=== PATIENT | male | born 1965 | race Caucasian/White ===

== ENCOUNTER 2025-01-17 08:48 | Outpatient (REF) | payer BC, SELFPAY ==
--- NOTE | ~2025-01-17 | XR_ITS ---
EXAMINATION: X-ray lumbar spine. CLINICAL INFORMATION: Radiculopathy, lumbar region. TECHNIQUE: AP and lateral views. Lateral views during flexion and extension position. COMPARISON: None FINDINGS: Multilevel endplate sclerosis and marginal osteophyte formation. Grade 1 retrolisthesis L1-2. Grade 1 anterolisthesis L4-5. No gross worsening of the anterolisthesis during flexion and/or extension.. No gross worsening of the retrolisthesis during flexion and or extension. No acute cortical disruption. No lytic or blastic lesions. XR/XR lumbar spine 4V min IMPRESSION: Multilevel spondylosis resulting in grade 1 anterolisthesis L4-5 and grade 1 retrolisthesis L1-2 without instability. Electronically signed by: Miki Hernandez MD 01/17/2025 11:13 AM EDT
== END 2025-01-17 08:49 | disposition home or self-care (01) ==
LOC: HO.HOSX 08:48
PROVIDERS: PCP Family Medicine; Referring Provider Family Medicine; Visit Provider Physician Assistant
DX: M54.16 Radiculopathy, lumbar region (principal)
CPT/HCPCS: 72110

== ENCOUNTER 2025-01-17 08:48 | Outpatient (AMB) | payer BC, SELFPAY ==
--- OUTSIDE RECORDS SUMMARY | 2025-01-17 09:03 | XMS_ITS | Encounter Summary ---
Author Organization [facility] Address [address] [place] [address] Care Team Providers Care Edge Stainer Machine Name Role Phone Yrn Sanchez MD Primary Care Provider [phone] Encounter Details Date Type Department Care Team (Late st Contact Info) Description 10/11/2017 Molecule Softwarehart Message [address] [address] Paulina Ventura CCMA change in appointment Social History Tobacco Use Types Packs/Day Years Used Date Smoking Tobacco: Never Smokeless Tobacco: Never Comments:: Alcohol Use Standard Drinks/Week Comments Yes 2 (1 standard drink = 0.6 oz pur e alcohol) Sex and Gender Information Value Date Recorded Sex Assigned at Not on file Legal Sex Male 2:42 AM EDT Gender Identity Not on file Sexual Orientation Not on file documented as of this encounter Plan of Treatment Not on file documented as of this encounter Visit Diagnoses Not on filedocumented in this encounter Additional Health Concerns Infection Onset Date Last Indicated Resolved Time COVID-19 - Suspected infection 06/10/2021 06/10/2021 06/14/2021 11:29 PM EST documented as of this encounter Care Teams Edge Stainer Machine Relationship Specialty Start Date End Date Yrn Sanchez MD [address] [place] [phone] PCP - General Internal Medicine 02/02/22 documented as of this encounter
--- NOTE | 2025-01-17 09:39 | HO.SPINEOV ---
Vital Signs 01/17/25 09:46 Height 5 ft 10 in Weight 190 lb BMI 27.3 Intake Visit Reasons: lumbar stenosis Intake Note: Mr. Decker is here today c/o low back pain that radiates to the left leg down to the foot. Disabilities Services Officer Required: No Allergies No Known Allergies Allergy (Verified 01/17/25 09:47) Physical Exam Vital Signs: BMI result Body Mass Index 27.3 Assessment & Plan Assessment & Plan (1) Lumbar radiculopathy: Code(s): M54.16 - Radiculopathy, lumbar region Category: Medical Plan Dear Dr Ojeda, Thank you for referring Mr Decker to our office today. He is a very nice 59 year old gentleman presents today for evaluation of left-sided low back pain radiating down into his left lateral thigh and into his calf and foot. He has had the symptoms now for about a year. The pain is aggravated with activity. He has been attempting some conservative treatment. He has been followed by a chiropractor/physical therapist who has been not only doing passive treatments on his lumbar spine but also actively prescribing him exercises, stretches and he has been voodoo with his follow-up and stain consistent with a therapeutic exercises. Unfortunately, the pain still persists. He has not taken any ddyd-zrc-tflpqgy pain medication, he has had bad reactions with his gut in the past with these, so he has been taking holistic remedies like turmeric to help with the anti-inflammatories effects. He comes in today with an MRI showing moderate to severe stenosis at L4-5 with a synovial cyst on the left. PMH: He is very healthy, has had inguinal hernia repair surgery but otherwise no major medical problems. He did have 1 episode of dizziness in presyncope that sent him to the emergency room a number of months ago but his workup for that was negative. It sounds like he had an echocardiogram and a brain MRI as well as an EKG in all these were normal. Social hx: Does not smoke, drinks a glass or 2 of wine couple times a week, no recreational drugs Medications: None Allergies: None Physical exam: Awake alert oriented no acute distress, positive straight leg raise at about 30 degrees, strength and reflexes are normal Imaging review: Lumbar MRI done at [place] shows moderate to severe stenosis at L4-5 with a synovial cyst projecting off the left L4-5 facet joint compressing the left L5 nerve. The rest of the lumbar spine otherwise looks okay. Impression: 59-year-old gentleman otherwise healthy presents with what sounds like a left L5 radiculopathy secondary to stenosis and a synovial cyst on the facet at L4-5 on the left. He has been doing conservative treatment now for about a year as outlined above with a chiropractor/physical therapist, as well as doing natural utiw-zph-kayqvao remedies to help with inflammation. At this point the pain is affecting his quality of life in his daily activities. I think he would be a good candidate for left L4-5 decompression with synovial cyst removal. I will get a set of flexion-extension x-rays just to exclude the possibility of instability, but it does not look to me like this based on the MRI. Once I have a chance to review everything with Dr. Veloz I will get back to the patient. I did quote success rate for our surgery at 90%. We did discuss risks and benefits of surgery activity as well as guidelines, restrictions expectations after surgery. Thank you for allowing us to care for your patient. The total time spent with this visit with this patient was 45 minutes reviewing history, physical exam, lumbar imaging review, and implementation of treatment plan or further diagnostic testing Moy Veloz MD,PhD [facility] Orders: Orders XR lumbar spine 4V min Today M54.16 - Radiculopathy, lumbar region Coding Level of Care Code New Pt Level 4 (46034) Diagnoses Lumbar radiculopathy M54.16
[2025-01-17 09:46] VITALS: BMI 27.3
== END 2025-01-17 11:00 | disposition home or self-care (01) ==
LOC: HO.HNS 08:48
PROVIDERS: PCP Family Medicine; Referring Provider Family Medicine; Visit Provider Physician Assistant
DX: M54.16 Radiculopathy, lumbar region (principal)
CPT/HCPCS: 99204

== ENCOUNTER → 2025-01-17 10:39 | Outpatient (BNV) | payer BC, SELFPAY | PROVIDERS: PCP Family Medicine; Referring Provider Family Medicine; Visit Provider Radiology Diagnostic Radiology | DX: M47.816 Spondylosis without myelopathy or radiculopathy, lumbar region (principal) | CPT/HCPCS: 72110 ==

== ENCOUNTER 2025-03-13 05:47 | Day surgery (SDC) | payer BC, SELFPAY ==
--- OUTSIDE RECORDS SUMMARY | 2025-01-28 17:54 | XMS_ITS | Encounter Summary ---
Author Organization [facility] Address [address] [place] [address] Care Team Providers Care Floorhand Name Role Phone Yrn Sanchez MD Primary Care Provider [phone] Encounter Details Date Type Department Care Team (Late st Contact Info) Description 10/11/2017 Trunk Showhart Message [address] [address] Paulina Ventura CCMA change in appointment Social [...] documented as of this encounter Care Teams Floorhand Relationship Specialty Start Date End Date Yrn Sanchez MD [address] [place] [phone] PCP - General Internal Medicine 02/02/22 documented as of this encounter
[2025-02-26 10:27] VITALS: BMI 27.3
--- NOTE | 2025-03-11 14:56 | HO.ANESPROP2 ---
Documented by User: Antoinette Delgadillo NP 03/11/25 14:56 HPI - Anesthesia Eval Consult details Narrative: 59yo M for Left L4-5 Decompression and synovial cyst removal PMFSH Active Problems Active Problems: All Active Problems Lumbar radiculopathy (Acute) Past Medical History Medical History Hx of dizziness (10/29/24) Low back pain BEENA on CPAP Surgical History Surgical History Hx of bilateral inguinal hernia repair Social History Social History Are you a primary critical care physician to a significant other at home: No Do you presently have visiting nurse or other home services: No Patient Tobacco Use Status: Never used Tobacco Second Hand Smoke Exposure: No Use of substances other than those prescribed or required for medical reasons: No Have you been hit, kicked, punched, or otherwise hurt by someone within the past year? If so, by whom?: No Are you DNR?: No Advance Directives: No Advance Directives Information Provided: Yes Advance Directives on File: No Poor oral hygiene: No Meds Allergies Allergy/AdvReac Type Severity Reaction Status Date / Time No Known Allergies Allergy Verified 01/17/25 09:47 Home Medications ?Medication ?Instructions ?Recorded ?Confirmed ?Last Taken ?Type testosterone topical DAILY 02/26/25 Unknown History Exam Height,Weight and Vital Signs: Height 5 ft 10 in Weight 86.183 kg Assessment and Plan Assessment Anesthesia Assessment: Chart Reviewed Documented by User: Margaux Klein MD 03/13/25 07:54 PMFSH Past Medical History Medical History Hx of dizziness (10/29/24) Low back pain BEENA on CPAP Family History Family history of problems with anesthesia: No Surgical History Surgical History Hx of bilateral inguinal hernia repair History of Problems with Anesthesia: No Social History Social History Are you a primary critical care physician to a significant other at home: No Do you presently have visiting nurse or other home services: No Patient Tobacco Use Status: Never used Tobacco Second Hand Smoke Exposure: No Use of substances other than those prescribed or required for medical reasons: No Have you been hit, kicked, punched, or otherwise hurt by someone within the past year? If so, by whom?: No Are you DNR?: No Advance Directives: No Advance Directives Information Provided: Yes Advance Directives on File: No Poor oral hygiene: No Meds Allergies Allergy/AdvReac Type Severity Reaction Status Date / Time No Known Allergies Allergy Verified 01/17/25 09:47 Home Medications ?Medication ?Instructions ?Recorded ?Confirmed ?Last Taken ?Type testosterone topical DAILY 02/26/25 Unknown History Exam Airway Mallampati Class: II TM Dist: >3cm Neck ROM: Limited Heart: rrr Lungs: cta Assessment and Plan Assessment Anesthesia Assessment: Anesthesia Plan Discussed Final Anesthetic Review Family History of Problems with Anesthesia: No History of Problems with Anesthesia: No NPO: Yes ASA Class: II Final Preanesthetic Review: No Changes in Pt Med Stat, Meds/Allgs Chart Reviewed, Consent Obtained/Reviewed and Anes Risks/Benef Reviewed Patient Risk: Low Procedure Risk: Intermediate Anesthetic Plan Anesthetic Plan: GA Disposition: Standard PACU
[2025-03-13] VITALS (9 sets, daily range): BP systolic 97–122; BP diastolic 59–75; PULSE 65–69; RESP 12–17; TEMP 36.1–36.2; O2SAT 92–97
--- NOTE | ~2025-03-13 | FL_ITS ---
EXAMINATION: FL GUIDANCE ONLY HISTORY: Left L4-5 Decompression COMPARISON: None available. TECHNIQUE: Fluoroscopy time: 3.4 seconds. Cumulative Dose: 2.0353 mGy. DAP: 0.8853 mGym2 Images: 1. FINDINGS: A single fluoroscopic spot film of the lumbar spine in the lateral projection demonstrates a probe directed toward the L4-5 intervertebral disc space from a posterior approach. FL/FL guidance in OR IMPRESSION: Fluoroscopy during procedure. Please see procedure report for additional information. Electronically signed by: Gino Tabares MD 03/13/2025 08:24 AM EDT
[2025-03-13] MEDS: Lactated Ringers 1,000 ML 100 ML IVCONT (06:40)
--- NOTE | 2025-03-13 06:58 | MHC.SHP ---
Pre-Procedural Eval Section A - 24 Hr Update-Section A only Date of Service: 03/13/25 Section B - Complete if H&P > 30 days Chief Complaint: Radiculopathy, lumbar region Allergies: Allergies Allergy/AdvReac Type Severity Reaction Status Date / Time No Known Allergies Allergy Verified 01/17/25 09:47 Review of Systems Sugical H&P ROS: Negative: Constitution, Cardiovascular, Respiratory, Neurological, Psychiatric, Hem-Onc, Allergic/Immunologic, Gastrointestinal, Genitourinary, Musculoskeletal, Integumentary, Endocrine and Eyes/Ears/Nose/Throat Exam Surgical H&P Exam: Not Evaluated: HEENT, Not Evaluated: Heart, Not Evaluated: Lungs, Not Evaluated: Extremities, Not Evaluated: Abdomen, Not Evaluated: Skin and Not Evaluated: Neurological Exam Comment: The patient is awake, alert, no acute distress. Proposed surgical incision site is clean, dry, with no signs of recent trauma. Plan Diagnosis/Plan: Unchanged I have reviewed the history and physical and performed a pertinent physical examination on my patient. No changes have occurred unless specified. Plan remains the same, left-sided L4-5 lumbar decompression with synovial cyst removal Time Spent With Patient Time: Total time managing care of this patient today __7__ minutes.
--- NOTE | 2025-03-13 08:25 | W.PM.OPN ---
Operative Note Operative Note Date of Service: 03/13/25 Narrative: Preoperative Diagnosis: Extradural benign mass (synovial cyst) compressing the left L5 nerve root Operation: L4-5 Laminotomy for removal of extradural benign mass with use of microscope Consent Informed Consent was obtained for this operation. I have explained the nature, purpose and benefits of the operation. I have discussed the risks and benefit of the operation including possible complications or adverse events with patient/family. Alternative(s) were discussed with the patient with their relative benefits and risks as well as the consequences of not accepting the operation were included in obtaining consent. Surgeon: MYRON WIGGINS MD, PHD Procedure Assisted By: Moy pina Description of Procedure This 5-year-old male is suffering from a left lumbar radiculopathy due to a extradural benign mass compressing the L5 nerve root. The patient was offered a removal of the mass to decompress the nervous structure. The procedure complications were explained. The patient was consented. The patient was brought to the operating room and endotracheally intubated. The patient was turned in prone position on the Lazarus frame. Prep and drape was done followed by timeout. Physician engineering inspection assistant provided access. A mid lumbar incision was made followed by release of the paravertebral muscle on the left side to expose the L4-5 lamina and facet joint. An intraoperative x-ray was obtained to confirm the correct level. The microscope was brought in. I took over the procedure. The high-speed drill was used to do a L4-5 laminotomy. The flavum ligament was opened to expose the underlying thecal sac and start of the L5 nerve root. A cystic mass was identified and dissected from the L5 nerve root. When the mass was completely relieved from the L5 nerve root I removed it in toto. Most likely we were dealing with a synovial cyst. A long the nerve root could be easily passed, a sign of adequate decompression of the nerve root . The microscope was removed. Hemostasis was done. Incision was closed in 2 layers. Steri-Strips were used to approximate incision. An OpSite with Tegaderm was used to cover the incision. All sponge needle counts were correct. Patient was extubated and transported in stable is to recovery room. Anesthesia: General Estimated Blood Loss (ml): Minimal Duration of Surgery: Under 60 Minutes Postoperative Plan: Discharge to home
--- NOTE | 2025-03-13 08:30 | P.DS_ITS ---
DS: Providers Provider Date of Service: 03/13/25 Date of discharge: 03/13/25 Primary care physician: Radha Ojeda DO DS: Summary Time Attestation Discharge Coordination Time (in mins): 12 Quality: Safe Use of Opioids Does Pt have an Active Cancer Diagnosis on the Problem List?: No Quality: Stroke Does the patient have a stroke diagnosis?: No Physical Exam Vital Signs: Vital Signs: Last Vital Signs Temp 97.2 F 03/13/25 06:29 Pulse 66 03/13/25 06:29 Resp 16 03/13/25 06:29 BP 122/75 03/13/25 06:29 Pulse Ox 97 03/13/25 06:29 O2 Del Method Room Air 03/13/25 06:29 BMI result Body Mass Index 27.3 Discharge Plan Discharge Patient Disposition: Home, Self-Care Referrals: Radha Ojeda DO [Primary Care Provider, Family Practice] - 1 Week Discharge Medications: New oxycodone 5 mg tablet 5 mg PO Q6H PRN (Reason: pain) Qty: 20 0RF Rx Instructions: Partial Fill upon patient request. No Action testosterone topical DAILY Discharge Orders: Discharge Order (Routine); Ordered 03/13/25 Ordered By: Ricardo Prajapati Diet: Advance to usual diet Activity on Discharge: As tolerated Activity Restrictions/Additional Instructions: Activity Restrictions/Additional Instructions: After your spinal surgery we ask you to observe the following restrictions/guidelines: Activity: It is normal to feel some discomfort as you increase your activity, but that will improve with time. We ask you avoid heavy lifting or acitivities that cause pain. As a general rule, 8lbs is a safe limit for lifting right after surgery. Walk as much as you feel comfortable but not to exhaustion. You will feel extra tired the first few days after surgery. Stay well hydrated. It is OK to walk up and down stairs You may return to driving when you are off narcotics (such as vicodin, oxycodone, dilaudid, etc), and you are back to normal functional capacity. If you have any concerns please check with office before driving. Return to work is specific to each patient and each surgery, so please speak with your doctor/PA at first follow up. Please bring paperwork such as FMLA at that time if you need it filled out. Medications: We recommend you take 1,000mg Tylenol every 8 hours for the first few weeks after surgery, if you do not have any liver issues and can tolerate this medication. Do not exceed 4,000mg daily. We will give you a short supply of narcotics after surgery (usually one weeks worth). If you need more please call the office but do not use more than prescribed. You will need to give our office 48 hours notice if you need narc otics refilled and we do not fill narcotics on weekends or evenings. If you are on a narcotic, it is a good idea to take a stool softener such as colace or senna to avoid constipation If you take blood thinner such as aspirin, Plavix, Coumadin, Effient, Eliquis etc for conditions such as Afib, DVT, Pulmonary embolus, coronary disease, stents etc please speak with your surgeon about specific details as to when you can resume these medications. You can resume NSAIDs on post op day 1 (eg: Motrin, Naproxen, etc). Follow up: Please call the office, , after surgery to arrange a 3 week follow up for wound check. Wound Care: You may remove your dressing on the first day after surgery. ?You may ?leave open to air. Please do not remove the steri strips underneath. they will fall off on their own in one week. IT IS NORMAL FOR THE WOUND TO OOZE OR BE BLOODY FOR A FEW DAYS AFTER SURGERY. ?IF THIS HAPPENS JUST PLACE NEW DRESSING OVER IT TO AVOID STAINING CLOTHES. You may shower on post op day # 1 We ask that you do not let the water soak the wound. If it does get wet, just towel dry lightly. Please do not scrub your incision or place any type of chemical/ointment on the wound. No tub baths, pools or jacuzzis for one month. If you have any leaking or redness from your wound, or fevers, please call the office. Print Language: Bahraini
== END 2025-03-13 10:22 | disposition home or self-care (01) ==
PROVIDERS: PCP Family Medicine; Visit Provider Neurological Surgery
PROC: (CPT 63267; principal; 2025-03-13 07:30)
DX: M71.38 Other bursal cyst, other site (principal); M54.16 Radiculopathy, lumbar region; M54.50 Low back pain, unspecified; G47.33 Obstructive sleep apnea (adult) (pediatric); Z99.89 Dependence on other enabling machines and devices
CPT/HCPCS: 63267; J0131; J0690; J1100; J1885; J2003; J2250; J2405; J2704; J3010

== ENCOUNTER → 2025-03-13 05:47 | Outpatient (BNV) | payer BC, SELFPAY | PROVIDERS: PCP Family Medicine; Visit Provider Neurological Surgery | DX: M71.38 Other bursal cyst, other site (principal) | CPT/HCPCS: 63267; 69990; 99499 ==

== ENCOUNTER 2025-04-03 09:47 | Outpatient (AMB) | payer BC, SELFPAY ==
--- NOTE | 2025-04-03 09:49 | HO.SPINEOV ---
Intake Visit Reasons: 1st post op Intake Note: Mr. Decker is here today for his 1st post op Paste Up Copy Camera Operator Required: No Allergies No Known Allergies Allergy (Verified 01/17/25 09:47) Assessment & Plan Assessment & Plan (1) Lumbar radiculopathy: Code(s): M54.16 - Radiculopathy, lumbar region Category: Medical Plan Operation: L4-5 Laminotomy Gino is a pleasant 59-year-old male who underwent L4-[address] Veloz a few weeks ago. He comes in today for his 1st postoperative visit. He reports that the bulk of his preoperative pain has resolved since his surgery, however he still experiences some low-grade left-sided leg pain. He states that this seems to worsen with activity. Thankfully he is only taking occasional Tylenol at home to help mitigate this. He has remained fairly active and goes for multiple walks per day. In addition to this he asked several questions regarding the postoperative healing course including questions regarding stretching/exercise. I answered all these questions to the best of my ability. No new neurological deficits. The patient ambulates well and rises from a seated position without difficulty. His posterior incision site is closed and well healed. I would like to follow up with Gino in 6 weeks for his 2nd postop visit. Ricardo Veloz MD,PhD [facility] Coding Level of Care Code Global (45505) Diagnoses Lumbar radiculopathy M54.16
--- OUTSIDE RECORDS SUMMARY | 2025-04-03 10:55 | XMS_ITS | Encounter Summary ---
Author Organization [facility] Address [address] [place] [address] Care Team Providers Care Import Dispatcher Name Role Phone Radha Ojeda DO Primary Care Provider + [phone] Encounter Details Date Type Department Care Team (Late Contact Info) Description 07/18/2017 myChart Message [facility] Medicine [address] [address] Chas Paredes MD [address] [place] [phone] RE: Visit Follow-Up Question Social History Tobacco Use Types Packs/Day Years Used Date Smoking Tobacco: Never Smokeless Tobacco: Never Comments:: Alcohol Use Standard Drinks/Week Comments Yes 2 (1 standard drink = 0.6 oz pur e alcohol) Sex and Gender Information Value Date Recorded Sex Assigned at Male 03/25/2025 9:14 AM EDT Legal Sex Male 2:42 AM EDT Gender Identity Not on file Sexual Orientation Not on file documented as of this encounter Plan of Treatment Upcoming Encounters Date Type Department Care Team (Late st Contact Info) Description 12/01/2025 8:30 AM EDT Office Visit [facility] [address] [place] [facility] [address] [address] Bruno Osborne MD [address] [address] documented as of this encounter Visit Diagnoses Not on filedocumented in this encounter Additional Health Concerns Infection Onset Date Last Indicated Resolved Time COVID-19 - Suspected infection 06/10/2021 06/10/2021 06/14/2021 11:29 PM EST documented as of this encounter Care Teams Import Dispatcher Relationship Specialty Start Date End Date Radha Ojeda DO [address] [place] [phone] PCP - General Family Medicine 03/25/25 documented as of this encounter
--- OUTSIDE RECORDS SUMMARY | 2025-04-03 10:55 | XMS_ITS | Encounter Summary ---
Author Organization [facility] Address [address] [place] [address] Care Team Providers Care System Operation Superintendent Name Role Phone Radha Ojeda DO Primary Care Provider [phone] Encounter Details Date Type Department Care Team (Late Contact Info) Description 07/06/2017 myChart Message [facility] Medicine [address] [address] Chas Paredes MD [address] [place] [phone] RE:note Social History Tobacco Use Types Packs/Day Years [...] Description 12/01/2025 8:30 AM EDT Office Visit [facility] [address] [place] [facility] [address] [address] Bruno Osborne MD [address] [address] documented as of this encounter Visit Diagnoses Not on filedocumented in this encounter Additional Health Concerns Infection Onset Date Last Indicated Resolved Time COVID-19 - Suspected infection 06/10/2021 06/10/2021 06/14/2021 11:29 PM EST documented as of this encounter Care Teams System Operation Superintendent Relationship Specialty Start Date End Date Radha Ojeda DO [address] [place] [phone] PCP - General Family Medicine 03/25/25 documented as of this encounter
--- OUTSIDE RECORDS SUMMARY | 2025-04-03 10:55 | XMS_ITS | Encounter Summary ---
Author Organization [facility] Address [address] [place] [address] Care Team Providers Care Lead Software Developer Name Role Phone Radha Ojeda DO Primary Care Provider [phone] Encounter Details Date Type Department Care Team (Late Contact Info) Description 07/06/2017 myChart Message [facility] Medicine [address] [place] [phone] Paulina Ventura CCMA RE: Letter Social History Tobacco Use Types Packs/Day Years [...] Description 12/01/2025 8:30 AM EDT Office Visit [facility] [address] [place] [facility] [address] [place] [phone] Bruno Osborne MD [address] [place] [phone] documented as of this encounter Visit Diagnoses Not on filedocumented in this encounter Additional Health Concerns Infection Onset Date Last Indicated Resolved Time COVID-19 - Suspected infection 06/10/2021 06/10/2021 06/14/2021 11:29 PM EST documented as of this encounter Care Teams Lead Software Developer Relationship Specialty Start Date End Date Radha Ojeda DO [address] [place] [phone] PCP - General Family Medicine 03/25/25 documented as of this encounter
--- OUTSIDE RECORDS SUMMARY | 2025-04-03 10:55 | XMS_ITS | Clinical Summary ---
Author Organization [facility] Address [address] [place] [address] Care Team Providers Care Electrical Software Engineer Name Role Phone Radha Ojeda DO Primary Care Provider + [phone] Allergies No known active allergies Medications multivitamin capsule Take 1 capsule by mouth daily. Active TURMERIC-TURMER IC ROOT EXTRACT ORAL Take by mouth. Active Active Problems Problem Noted Date Diagnosed Date Healthcare maintenance 02/03/2022 Overview (02/03/2022): Discuss extensively the risk and benefit of PSA screening based on current literature and practice guidelines. Patient understands the risk and benefits, and opted not to have PSA screening He declined all vaccine as he does not trust their efficacy. He does not want to discuss vaccine in the future. He will have stool test in the fall Chronic right-sided low back pain without sciati ca 05/22/2019 Neck pain 05/22/2019 Vitamin D deficiency 05/16/2018 Hypercholesterolemia 04/28/2016 Overview (02/03/2022): The 10-year ASCVD risk score (Giovanni MARLON Jr., et al., 2013) is: 5.1% Values used to calculate the score: Age: 56 years Sex: Male Is Non- : No Diabetic: No Tobacco smoker: No Systolic Blood Pressure: 124 mmHg Is BP treated: No HDL Cholesterol: 59 mg/dL Total Cholesterol: 184 mg/dL Lipids Latest Ref Rng & Units 05/06/2021 04/28/2020 05/16/2019 CHOLESTEROL <200 mg/dL 184 198 219(H) TRIGLYCERIDES <150 mg/dL 112 105 127 HDL > OR = 40 mg/dL 59 62 52 LDL-CHOLESTEROL mg/dL (calc) 104(H) 115(H) 142(H) LDL <130 mg/dL - - - he has focused on lifestyle. Prior provider recommended statin which he did not agree He agreed to check lipid panel and again and discuss further when we have result. He understands the risk of hyperlipidemia Assessment & Plan (02/03/2022 8:59 AM EDT): Will check lipid panel and a1c History of asbestos exposure 03/02/2016 Gastroesophageal reflux disease 11/26/2015 Overview (02/03/2022): Lifestyle modification a lone [facility], last time was 2 months, once a month or less, mostly related with spice food Had EGD in the past with hiatal herniation, he is not very interested in medications at this moment We discsused many lifestyle modification for GERD We discussed Hoyos's esophagus and reviewed redflag symptoms, which he did not have Assessment & Plan (02/03/2022 9:00 AM EDT): Will continue with lifestyle modification Will return to subject of repeat EGD in the future Hiatal hernia 09/03/2015 Varicose veins of leg with swelling 03/23/2015 Hip joint stiffness 06/20/2014 Obstructive sleep apnea 03/03/2014 Overview (02/03/2022): He is using CPAP at home Resolved Problems Problem Noted Date Diagnosed Date Resolved Date Other chest pain 01/04/2018 05/16/2018 Episodic tension-type headache 01/04/2018 02/02/2022 Chalazion of right lower eyelid 07/05/2017 01/04/2018 Hale splint, right, initial encounter 07/05/2017 01/04/2018 Olecranon bursitis of right elbow 07/05/2017 02/02/2022 Right inguinal hernia 05/04/20172021 Overview (02/02/2022): Bilateral, underwent surgery, not resolved Abdominal pain 12/27/2016 05/16/2018 Venous insufficiency 11/09/2016 022 Pain in right shoulder 08/12/201605/16 Right inguinal pain 04/28/2016 07/05/20 Acute upper respiratory infection 11/16/2015 01/04/2018 Polyarthralgia 10/24/2013 02/02/2022 Synovial cyst of popliteal space 01/14/2013 02/02/2022 Joint pain, knee Left 01/10/20132017 Immunizations Immunization Administration Dates Next Due INFLUENZA, SPLIT VIRUS, TRIVALENT, PF 04/22/2013 Tetanus Toxoid, Reduced Diph theria Toxoid, and Acellular Pertussis Vaccine, Adsorbed 08/07/2011 Family History Medical History Relation Name Comments Other Brother 1 Family History of alcoholism Depression Brother 2 overdose Other Brother 2 Family History of schizophrenia No Known Problems Daughter Alcohol abuse Father Cirrhosis Father Pancreatic cancer Father No Known Problems Maternal Grandfather No Known Problems Maternal Grandmother Brain Aneurysm Mother COPD Mother Heavy smoker, h ad colitis, used colostomy Stroke Mother Ulcerative colitis Mother No Known Problems Paternal Grandfather No Known Problems Paternal Grandmother No Known Problems Sister 1 No Known Problems Sister 2 No Known Problems Son Breast cancer Neg Hx Colon cancer Neg Hx Prostate cancer Neg Hx Relation Name Status Comments Brother 1 Alive Brother 2 Daughter Alive Father (Age 69) Maternal Grandfather Maternal Grandmother Mother (Age 82) PR in [place] Paternal Grandfather Paternal Grandmother Sister 1 Alive Sister 2 Alive Son Alive Social History Tobacco Use Types Packs/Day Years Used Date Smoking Tobacco: Never Smokeless Tobacco: Never Comments:only in high school , 40 years ago or more Alcohol Use Standard Drinks/Week Comments Yes 2 (1 standard drink = 0.6 oz pur e alcohol) social Transportation Answer Date Recorded Please taye the areas for ich the patient would like information or assistance: None Apply 05/13/2021 Lack of Transportation (Medical) Not on file 05/13/2021 Housing Stability Answer Date Recorded Please taye the areas for ich the patient would like information or assistance: None Apply 05/13/2021 Unable to Pay for Housing in the Last Year Not o n file 05/13/2021 Last EPDS Total Score Not on file 05/13/2021 Unstable Housing in the Last Year Not on file 05/13/2021 Education Answer Date Recorded What is the highest level of school you have completed or the highest degree you have received? 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 Not on file Not on file Not on file Last Filed Vital Signs Vital Sign Reading Time Taken Comments Blood Pressure 124/70 02/02/2022 2:56 PM EDT Pulse 69 02/02/2022 2:56 PM EDT Temperature 36.7 C (98.1 F) 07/05/2017 9:50 AM EST Respiratory Rate 16 03/13/2018 7:58 AM EDT Oxygen Saturation 97% 02/02/2022 2:56 PM EDT Inhaled Oxygen Concentration - - Weight 87.5 kg (193 lb) 02/02/2022 2:56 PM EDT Height 175.3 cm (5' 9 ) 02/02/2022 2:56 PM EDT Body Mass Index 28.5 02/02/2022 2:56 PM EDT Plan of Treatment Upcoming Encounters Date Type Department Care Team (Late st Contact Info) Description 12/01/2025 8:30 AM EDT Office Visit [facility] [address] [place] [facility] [address] [place] [phone] Bruno Osborne MD [address] [address] Health Maintenance Due Date Last Done Comments Colonoscopy 1965 HIV Screening 1965 Sigmoidoscopy 1965 Pneumococcal Vaccine: 50+ Years (1 of 1 - PCV) 2014 Zoster Vaccines (1 of 2) 2014 FOBT / Fit Test 05/17/2019 05/17/2018, 04/08, 04/25/2016, Additional history exists DTaP,Tdap,and Td Vaccines (3 - Td or Tdap) 07/04/2022 07/04/2012, 08/07/2011, 09/10/2004 Cologuard 07/06/2023 07/06/2020, 06/24/2020 Colon Cancer Screening 07/06/2023 Alcohol/Substance Use Screening 08/07/2024 Influenza Vaccine (#1) 2025 3, 07/04/2012, 05/19/2011 RSV Vaccine (60+ years old and patients) (1 - 1-dose 75+ series) 2039 COVID-19 Vaccine Discontinued Hepatitis B Vaccines Aged Out No long er eligible based on patient's age to complete this topic Procedures * Due to [employer] law, this organization might not be sharing negative HIV tests. Procedure Name Priority Date/Time Associated Diagnosis Comments COLOGUARD Routine 07/06/2020 OCCULT BLOOD, FECAL (FIT) Routine 05/17/2018 11:27 AM EDT Routine general medical examination at health care facility from Last 3 Months or Most Recently Relevant to Health Maintenance Results * Due to [employer] law, this organization might not be sharing negative HIV tests. * Cologuard (07/06/2020) us Unknown Provider MD [facility] Final Res ult * Occult Blood, Fecal (FIT) (05/17/2018 11:27 AM EDT) Micro Number: [id number] 05/18/2018 12:25 PM EDT [employer] Specimen Quality: ADEQUATE 018 12:25 PM EDT [employer] Source: INSURE (TM) FOBT TEST CARD 05/18/2018 12:25 PM EDT [employer] Status: FINAL 05/18/2018 12:25 PM EDT [employer] Fecal Globin By Immunochemistry Not Detected 05/18/2018 12:25 PM EDT [employer] Stool specimen (specimen) Rectal route / Unknown 05/17/2018 11:27 AM EDT 05/17/2018 3:42 PM EDT Narrative [facility] - 05/18/2018 12:32 PM EDT SPLIT 05/16/2018 FROM [id number] us Chas Paredes MD LAB BODY FLUIDS AND STOOLS O RDERABLES Final Result [facility] [address], [place] [address], [place] [phone] [facility] [address], [place] [address], [place] [phone] from Last 3 Months or Most Recently Relevant to Health Maintenance Insurance [facility] PPO/EPO Care Teams Electrical Software Engineer Relationship Specialty Start Date End Date Radha Ojeda DO [address] [place] [phone] PCP - General Family Medicine 03/25/25
--- OUTSIDE RECORDS SUMMARY | 2025-04-03 10:55 | XMS_ITS | Encounter Summary ---
Author Organization [facility] Address [address] [place] [address] Care Team Providers Care Master Rigger Name Role Phone Radha Ojeda DO Primary Care Provider [phone] Encounter Details Date Type Department Care Team (Late Contact Info) Description 10/11/2017 myChart Message [facility] Medicine [address] [place] [phone] Paulina Ventura CCMA change in appointment Social [...] Description 12/01/2025 8:30 AM EDT Office Visit [facility] [address] [place] [facility] [address] [place] [phone] Bruno Osborne MD [address] [place] [phone] documented as of this encounter Visit Diagnoses Not on filedocumented in this encounter Additional Health Concerns Infection Onset Date Last Indicated Resolved Time COVID-19 - Suspected infection 06/10/2021 06/10/2021 06/14/2021 11:29 PM EST documented as of this encounter Care Teams Master Rigger Relationship Specialty Start Date End Date Radha Ojeda DO [address] [place] [phone] PCP - General Family Medicine 03/25/25 documented as of this encounter
--- OUTSIDE RECORDS SUMMARY | 2025-04-03 10:55 | XMS_ITS | Encounter Summary ---
Author Organization [facility] Address [address] [place] [address] Care Team Providers Care Passenger Conductor Name Role Phone Radha Ojeda DO Primary Care Provider + [phone] Encounter Details Date Type Department Care Team (Late Contact Info) Description 07/05/2017 myChart Message [facility] Medicine 10 [facility] [address] [place] [address] Chas Paredes MD [address] [place] [phone] Visit Follow-Up Question Social History Tobacco Use [...] Encounters Date Type Department Care Team (Late Contact Info) Description 12/01/2025 8:30 AM EDT Office Visit [facility] [address] [place] [facility] [address] [address] Bruno Osborne MD [address] [phone] documented as of this encounter Visit Diagnoses Not on filedocumented in this encounter Additional Health Concerns Infection Onset Date Last Indicated Resolved Time COVID- Suspected infection 06/10/2021 06/10/2021 06/14/2021 11:29 PM EST documented as of this encounter Care Teams Passenger Conductor Relationship Specialty Start Date End Date Radha Ojeda DO [address] [place] [phone] PCP - General Family Medicine 03/25/25 documented as of this encounter
== END 2025-04-03 10:35 | disposition home or self-care (01) ==
LOC: HO.HNS 09:47
PROVIDERS: PCP Family Medicine; Visit Provider Physician Assistant
DX: M54.16 Radiculopathy, lumbar region (principal)
CPT/HCPCS: 99024

== ENCOUNTER 2025-05-15 08:45 | Outpatient (AMB) | payer BC, SELFPAY ==
--- NOTE | 2025-05-15 08:58 | A.SPINEOV_ITS ---
Intake Visit Reasons: 2nd post op Intake Note: Mr. Decker is here today for his 2nd post op. Salmon Gillnet Vessel Operator Required: No Allergies No Known Allergies Allergy (Verified 01/17/25 09:47) Assessment & Plan Assessment & Plan (1) Status post lumbar spine surgery for decompression of spinal cord: Code(s): Z98.890 - Other specified postprocedural states Category: Medical Plan Operation: L4-5 Laminotomy Gino is a pleasant 59-year-old male who underwent L4-[address] Veloz on03/13/25. He comes in today for his 2nd postoperative visit. He reports that he has continued to heal very well overall since his surgery. He has minimal left-sided leg pain, and has returned to some of the activities that were meaningful for him prior to experiencing his low back and leg pain. He recently bought an electric Vive Nano bike and has been riding the bike primarily on roads to get back into some regular activity. He is hopeful that he can work his way up to riding on trails again. We discussed the postoperative healing course and I answered any questions that he had. No new neurological deficits. The patient ambulates well and rises from a seated position without difficulty. His posterior incision site is closed and well healed. There is no need for continued routine follow up with Gino, he may follow up on an as-needed basis in the future. Ricardo Veloz MD,PhD [facility] Coding Level of Care Code Global (03745) Diagnoses Status post lumbar spine surgery for decompression of spinal cord Z98.890
== END 2025-05-15 09:18 | disposition home or self-care (01) ==
LOC: HO.HNS 08:46
PROVIDERS: PCP Family Medicine; Visit Provider Physician Assistant
DX: Z98.890 Other specified postprocedural states (principal)
CPT/HCPCS: 99024